=== PATIENT | female | born 1985 | race American Indian/Alaskan Native ===

== ENCOUNTER 2021-04-13 11:19 | Emergency (ER) | payer BC ==
[2021-04-13] MEDS ORDERED: TETANUS,DIPH,PERTUSS(ACELL) VACCINE 0.5 ML SYRINGE IM ONE (12:35)
[2021-04-13] MEDS ORDERED: LIDOCAINE (1%) 10 MG/1 ML VIAL 20 ML MDV INFILTRATI ONE (12:35)
--- NOTE | 2021-04-13 13:01 | Emergency Department Report ---
- General Chief Complaint: Wound/Laceration Stated Complaint: CUT 2 (L)FINGERS Time Seen by Provider: 04/13/21 12:32 Source: patient Mode of arrival: Ambulatory Limitations: No Limitations - History of Present Illness Initial Comments: pt is a 35-year-old female presents emergency room with complaints of lacerations present to her left fingers that occurred just prior to arrival. Patient has a laceration to her left ring finger and her left pinky finger. She states that she was cutting cabbage and accidentally cut herself with a knife. She is unsure of her last tetanus immunization. She denies any numbness or weakness. She is still able to move the digits without any difficulty. No past medical history. No allergies medications. - Related Data Allergies Allergy/AdvReac Type Severity Reaction Status Date / Time No Known Allergies Allergy Unverified 04/13/21 12:31 ED Review of Systems ROS: Stated complaint: CUT 2 (L)FINGERS Other details as noted in HPI Comment: All other systems reviewed and negative ED Past Medical Hx - Past Medical History Previous Medical History?: No - Surgical History Past Surgical History?: No ED Physical Exam - General Limitations: No Limitations General appearance: alert, in no apparent distress - Head Head exam: Present: atraumatic, normocephalic - Eye Eye exam: Present: normal appearance - ENT ENT exam: Present: mucous membranes moist - Respiratory Respiratory exam: Absent: respiratory distress, accessory muscle use - Extremities Exam Extremities exam: Present: other (there is a 1.5 cm laceration present to the palmar surface of the distal left pinky finger, there is a 2 cm laceration present to the palmar surface of the distal left index finger, no muscle/tendon invovlement, FROM, no foreign body, neurovascularly intact) - Neurological Exam Neurological exam: Present: alert, oriented X3 - Psychiatric Psychiatric exam: Present: normal affect, normal mood - Skin Skin exam: Present: warm, dry ED Course Vital Signs 04/13/21 14:36 Temperature 98.1 F Pulse Rate 75 Respiratory 18 Rate Blood Pressure 138/75 [Right] O2 Sat by Pulse 100 Oximetry - Laceration /Wound Repair Left Finger Wound Location: upper extremity (two lacerations are present, they are on the palmar surface at the distal ends of the left pinky and left ring finger ) Wound Length (cm): 2 (there is a 2 cm, and a 1.5 cm) Wound's Depth, Shape: superficial Wound Explored: clean Irrigated w/ Saline (ccs): 100 Betadine Prep?: Yes Anesthesia: 1% Lidocaine Volume Anesthetic (ccs): 8 (digital block performed on the left ring and pinky fingers) Wound Debrided: moderate Wound Repaired With: sutures Suture Size/Type: 4:0 Number of Sutures: 8 Layer Closure?: No Sterile Dressing Applied?: Yes Progress: Verbal consent obtained by patient 2 lacerations were repaired Wound irrigated with saline and thoroughly scrubbed with Betadine, no muscle or tendon involvement, no foreign body, digital block performed on the left pinky finger in the left ring finger, Betadine prep again, sterile drapes applied, sterile gloves worn, 4-0 Prolene used for skin closure, a total of 8 sutures were placed, patient tolerated well, no complications, bleeding controlled, sterile dressing applied ED Medical Decision Making - Medical Decision Making pt is a 35-year-old female presents emergency room with complaints of lacerations present to her left fingers that occurred just prior to arrival. Patient has a laceration to her left ring finger and her left pinky finger. She states that she was cutting cabbage and accidentally cut herself with a knife. She is unsure of her last tetanus immunization. She denies any numbness or weakness. She is still able to move the digits without any difficulty. No past medical history. No allergies medications. vss. on exam: there is a 1.5 cm laceration present to the palmar surface of the distal left pinky finger, there is a 2 cm laceration present to the palmar surface of the distal left index finger, no muscle/tendon invovlement, FROM, no foreign body, neurovascularly intact. Lacerations repaired per procedure note without any complications. Advised patient Please keep area clean, dry, covered. Wash with antibacterial soap and water and pat dry. No hot tub, no pool, no soaking water. Showering is fine. Follow-up with your primary care doctor for reexamination. Sutures need to be removed in 10 to 14 days, may return to emergency room. Return to e mergency room for any new or worsening symptoms or any signs of infection. Critical care attestation.: If time is entered above; I have spent that time in minutes in the direct care of this critically ill patient, excluding procedure time. ED Disposition Clinical Impression: Laceration of little finger Qualifiers: Encounter type: initial encounter Damage to nail status: without damage Foreign body presence: without foreign body Laterality: left Qualified Code(s): S61.217A - Laceration without foreign body of left little finger without damage to nail, initial encounter Laceration of ring finger Qualifiers: Encounter type: initial encounter Damage to nail status: without damage Foreign body presence: without foreign body Laterality: left Qualified Code(s): S61.215A - Laceration without foreign body of left ring finger without damage to nail, initial encounter Disposition: DC-01 TO HOME OR SELFCARE Is pt being admited?: No Does the pt Need Aspirin: No Condition: Stable Instructions: Laceration Care, Adult Additional Instructions: Please keep area clean, dry, covered. Wash with antibacterial soap and water and pat dry. No hot tub, no pool, no soaking water. Showering is fine. Follow-up with your primary care doctor for reexamination. Sutures need to be removed in 10 to 14 days, may return to emergency room. Return to emergency room for any new or worsening symptoms or any signs of infection. Referrals: PRIMARY CARE [Primary Care Provider] - 3-5 Days Forms: Work/School Release Form(ED) Time of Disposition: 14:23 Print Language: UZBEK
[2021-04-13 14:37] VITALS: BP 138/75
== END 2021-04-13 14:37 | disposition home or self-care (01) ==
LOC: ED 11:19
DX: S61.215A Laceration without foreign body of left ring finger without damage to nail, initial encounter (principal); S61.217A Laceration without foreign body of left little finger without damage to nail, initial encounter; W26.0XXA Contact with knife, initial encounter; Y93.89 Activity, other specified; Y92.89 Other specified places as the place of occurrence of the external cause; Y99.8 Other external cause status
CPT/HCPCS: 90471; 90715; 99282

== ENCOUNTER 2021-04-23 10:54 | Emergency (ER) | payer BC ==
[2021-04-23 11:13] VITALS: BP 130/70
--- NOTE | 2021-04-23 13:19 | Emergency Department Report ---
ED General Adult HPI - General Chief complaint: Recheck/Abnormal Lab/Rx Stated complaint: STITCHES REMOVED Time Seen by Provider: 04/23/21 13:04 Source: patient Mode of arrival: Ambulatory Limitations: No Limitations - History of Present Illness Initial comments: 35-year-old female patient presents for suture removal today. Sutures were placed here in the ED on 04/13/2021. Patient denies any increased pain, swelling, decreased range of motion, purulent drainage, or fever/chills/sweats. - Related Data Allergies Allergy/AdvReac Type Severity Reaction Status Date / Time No Known Allergies Allergy Unverified 04/13/21 12:31 ED Review of Systems ROS: Stated complaint: STITCHES REMOVED Other details as noted in HPI Constitutional: denies: chills, diaphoresis, fever, malaise Musculoskeletal: denies: joint swelling, arthralgia Skin: denies: change in color Neurological: denies: numbness, paresthesias ED Past Medical Hx - Past Medical History Previous Medical History?: No - Social History Smoking Status: Never Smoker Substance Use Type: None ED Physical Exam - General Limitations: No Limitations General appearance: alert, in no apparent distress - Head Head exam: Present: atraumatic, normocephalic - Eye Eye exam: Present: normal appearance - Respiratory Respiratory exam: Absent: respiratory distress - Cardiovascular Cardiovascular Exam: Present: regular rate - Expanded Upper Extremity Exam Left Hand Wrist exam: Present: full ROM, other (5 sutures total noted in the left index finger and pinky; no surrounding erythema noted). Absent: swelling - Neurological Exam Neurological exam: Present: alert, oriented X3 - Psychiatric Psychiatric exam: Present: normal affect ED Course Vital Signs 04/23/21 11:11 Temperature 98.3 F Pulse Rate 83 Respiratory 16 Rate Blood Pressure 130/70 O2 Sat by Pulse 97 Oximetry - Procedure Description Procedures done: 5 sutures removed. Patient tolerated procedure well without any immediate complications. No wound dehiscence or drainage or bleeding noted ED Medical Decision Making - Medical Decision Making Sutures removed. Patient tolerated procedure well without any immediate complications. She is well-appearing and stable for discharge home. Strict return precautions discussed in detail patient verbalized understanding peer Critical care attestation.: If time is entered above; I have spent that time in minutes in the direct care of this critically ill patient, excluding procedure time. ED Disposition Clinical Impression: Visit for suture removal Disposition: HOME / SELF CARE / HOMELESS Is pt being admited?: No Condition: Stable Instructions: Wound Closure Removal, Care After Referrals: PRIMARY CARE,MD [Primary Care Provider] - as needed
== END 2021-04-23 13:18 | disposition home or self-care (01) ==
LOC: ED 10:54
DX: Z48.02 Encounter for removal of sutures (principal)